=== PATIENT | female | born 2000 | race Caucasian/White ===

== ENCOUNTER 2018-05-29 21:20 | Emergency (ER) | payer BC ==
[2018-05-29 22:58] LABS: HCG Pregnancy < 0.60 mIU/mL
[2018-05-29 23:46] LABS: Urine Appearance Cloudy; Urine Bilirubin Negative (Negative); Urine Blood Negative (Negative); Urine Color Yellow; Urine Glucose Negative (Negative); Urine Ketones Negative (Negative); Urine Nitrite Negative (Negative); Urine Protein Negative (Negative); Urine Specific Gravity 1.012 (1.010-1.030); Urine Urobilinogen Negative (Negative)
[2018-05-30] MEDS ORDERED: HYDROcodone/ACETAMIN 5-325 MG* 1 TAB PO ONE ×2 (00:08→03:51)
[2018-05-30 00:34] LABS: ABS Basophils 0 10^3/ul (0-0.2); ABS Eosinophils 0.1 10^3/ul (0-0.6); ABS Lymphocytes 2.1 10^3/ul (1.0-4.8); ABS Monocytes 0.7 10^3/ul (0-0.8); ABS Neutrophils 4.5 10^3/ul (1.5-7.7); ABS Nucleated RBC 0 10^3/ul; Hematocrit 35 % (33-41); Hemoglobin 11.4 g/dL (12.0-16.0); Lymphocyte % 28.8 %; Mean Corpuscular HGB Conc 33 g/dL (31-36); Mean Corpuscular Hemoglobin 27 pg (27-31); Mean Corpuscular Volume 82 fL (80-97); Mean Platelet Volume 7.7 fL (7.4-10.4); Nucleated Red Blood Cells % 0.1; Platelet Count 377 10^3/uL (150-450); Red Blood Count 4.25 10^6 /uL (3.70-4.87); Red Cell Distribution Width 14 % (10.5-15); White Blood Count 7.5 10^3/uL (3.5-10.8)
[2018-05-30 00:45] LABS: ALT 14 U/L (7-52); AST 16 U/L (13-39); Albumin 4.2 g/dL (3.2-5.2); Albumin/Globulin Ratio 1.6 (1-3); Alkaline Phosphatase 50 U/L (34-104); Anion Gap 7 mmol/L (2-11); Blood Urea Nitrogen 13 mg/dL (6-24); C Reactive Protein < 1.00 mg/L (<8.01); CO2 Carbon Dioxide 25 mmol/L (22-32); Calcium 9.2 mg/dL (8.6-10.3); Chloride 108 mmol/L (101-111); EGFR Non-African American 76.9 (>60); Globulin 2.7 g/dL (2-4); Glucose 98 mg/dL (70-100); Sodium 140 mmol/L (135-145); Total Protein 6.9 g/dL (6.4-8.9)
--- NOTE | 2018-05-30 02:06 | ED ---
Abdominal Pain/Female - HPI Summary HPI Summary: Patient complains of left lower quadrant pain starting Sunday. Pain described as intermittent, more constant and progressive today. Patient states she took ibuprofen with no relief at 6 PM. Denies prior history of ovarian cysts. Denies fever, cough, sore throat, CP, SOB, N/V/D, change in urine, change in BM , vaginal symptoms. Medical history is ashen motives. Abdominal surgical history is none. LMP 05/05. - History of Current Complaint Chief Complaint: EDUrogenitalProblems Stated Complaint: STABBING PAIN IN MY UTERUS AREA PER PT Time Seen by Provider: 05/29/18 23:03 Hx Obtained From: Patient Onset/Duration: Gradual Onset, Lasting Days Timing: Intermittent Episode Lasting Severity Initially: Severe Severity Currently: Severe Pain Intensity: 9 Pain Scale Used: 0-10 Numeric Location: Discrete At: LLQ Radiates: No Character: Sharp, Burning, Cramping Aggravating Factor(s): Nothing Alleviating Factor(s): Nothing Associated Signs and Symptoms: Positive: Negative Allergies/Adverse Reactions: Allergies Allergy/AdvReac Type Severity Reaction Status Date / Time No Known Allergies Allergy Verified 05/29/18 21:30 PMH/Surg Hx/FS Hx/Imm Hx Endocrine/Hematology History: Denies: Hx Anticoagulant Therapy Cardiovascular History: Denies: Hx Pacemaker/ICD History: Denies: Hx Dialysis Sensory History: Denies: Hx Eye Prosthesis Opthamlomology History: Denies: Hx Legally Blind Neurological History: Denies: Hx CVA Psychiatric History: Denies: Hx Autism - Immunization History Immunizations Up to Date: Yes Infectious Disease History: No Infectious Disease History: Denies: Traveled Outside the [place] in Last 30 Days - Social History Alcohol Use: Occasionally Substance Use Type: Reports: None Smoking Status (MU): Never Smoked Tobacco Review of Systems Constitutional: Negative Eyes: Negative ENT: Negative Cardiovascular: Negative Respiratory: Negative Positive: Abdominal Pain Genitourinary: Negative Musculoskeletal: Negative Skin: Negative Neurological: Negative Psychological: Normal All Other Systems Reviewed And Are Negative: Yes Physical Exam - Summary Physical Exam Summary: Tenderness left lower quadrant. Abdominal exam otherwise unremarkable. Lung sounds clear to auscultation bilaterally. RRR. Triage Information Reviewed: Yes Vital Signs On Initial Exam: Initial Vitals Temp Pulse Resp BP Pulse Ox 98.8 F 90 16 121/74 98 05/29/18 21:30 05/29/18 21:30 05/29/18 21:30 05/29/18 21:30 05/29/18 21:30 Vital Signs Reviewed: Yes Appearance: Positive: Well-Appearing Skin: Positive: Warm Head/Face: Positive: Normal Head/Face Inspection Eyes: Positive: Normal Neck: Positive: Supple Respiratory/Lung Sounds: Positive: Clear to Auscultation Cardiovascular: Positive: Normal Abdomen Description: Positive: Nontender Musculoskeletal: Positive: Normal Neurological: Positive: Normal Psychiatric: Positive: Normal AVPU Assessment: Alert - [place] Coma Scale Best Eye Response: 4 - Spontaneous Best Motor Response: 6 - Obeys Commands Best Verbal Response: 5 - Oriented Coma Scale Total: 15 Diagnostics - Vital Signs Vital Signs Temp Pulse Resp BP Pulse Ox 05/29/18 21:30 98.8 F 90 16 121/74 98 - Laboratory Lab Results: Lab Results 05/29/18 05/29/18 05/29/18 Range/Units 22:23 22:23 23:27 WBC 7.5 (3.5-10.8) 10^3/uL RBC 4.25 (3.70-4.87) 10^6 /uL Hgb 11.4 L (12.0-16.0) g/dL Hct 35 (33-41) % MCV 82 (80-97) fL MCH 27 (27-31) pg MCHC 33 (31-36) g/dL RDW 14 (10.5-15) % Plt Count 377 (150-450) 10^3/uL MPV 7.7 (7.4-10.4) fL Neut % (Auto) 60.9 % Lymph % (Auto) 28.8 % Real % (Auto) 8.9 % Eos % (Auto) 1.0 % Baso % (Auto) 0.4 % Absolute Neuts (auto) 4.5 (1.5-7.7) 10^3/ul Absolute Lymphs (auto) 2.1 (1.0-4.8) 10^3/ul Absolute Monos (auto) 0.7 (0-0.8) 10^3/ul Absolute Eos (auto) 0.1 (0-0.6) 10^3/ul Absolute Basos (auto) 0 (0-0.2) 10^3/ul Absolute Nucleated RBC 0 10^3/ul Nucleated RBC % 0.1 Sodium 140 (135-145) mmol/L Potassium 4.0 (3.5-5.0) mmol/L Chloride 108 (101-111) mmol/L Carbon Dioxide 25 (22-32) mmol/L Anion Gap 7 (2-11) mmol/L BUN 13 (6-24) mg/dL Creatinine 0.93 (0.51-0.95) mg/dL Est GFR ( Amer) 93.0 (>60) Est GFR (Non-Af Amer) 76.9 (>60) BUN/Creatinine Ratio 14.0 (8-20) Glucose 98 (70-100) mg/dL Calcium 9.2 (8.6-10.3) mg/dL Total Bilirubin 0.20 (0.2-1.0) mg/dL AST 16 (13-39) U/L ALT 14 (7-52) U/L Alkaline Phosphatase 50 (34-104) U/L C-Reactive Protein < 1.00 (<8.01) mg/L Total Protein 6.9 (6.4-8.9) g/dL Albumin 4.2 (3.2-5.2) g/dL Globulin 2.7 (2-4) g/dL Albumin/Globulin Ratio 1.6 (1-3) Beta HCG, Quant < 0.60 mIU/mL Urine Color Yellow Urine Appearance Cloudy Urine pH 9.0 (5-9) Ur Specific [place] 1.012 (1.010-1.030) Urine Protein Negative (Negative) Urine Ketones Negative (Negative) Urine Blood Negative (Negative) Urine Nitrate Negative (Negative) Urine Bilirubin Negative (Negative) Urine Urobilinogen Negative (Negative) Ur Leukocyte Esterase Negative (Negative) Urine Glucose Negative (Negative) Result Diagrams: 05/29/18 22:23 05/29/18 22:23 Lab Statement: Any lab studies that have been ordered have been reviewed, and results considered in the medical decision making process. Abdominal Pain Fem Course/Dx - Course Course Of Treatment: Patient complains of left lower quadrant pain starting Sunday. Pain described as intermittent, more constant and progressive today. Patient states she took ibuprofen with no relief at 6 PM. Denies prior history of ovarian cysts. Denies fever, cough, sore throat, CP, SOB, N/V/D, change in urine, change in BM, vaginal symptoms. Medical history is ashen motives. Abdominal surgical history is none. LMP 05/05. Physical exam:Tenderness left lower quadrant. Abdominal exam otherwise unremarkable. Lung sounds clear to auscultation bilaterally. RRR. Vital signs within normal limits. Labs unremarkable. Transvaginal ultrasound positive for right hemorrhagic ovarian cyst. Patient advised to follow up with [facility]. Patient understands and approves Plan. - Diagnoses Provider Diagnoses: Hemorrhagic cyst of right ovary Discharge - Sign-Out/Discharge Documenting (check all that apply): Patient Departure Patient Received Moderate/Deep Sedation with Procedure: No - Discharge Plan Condition: Stable Disposition: HOME Prescriptions: HYDROcodone/ACETAMIN 5-325 MG* [[place] 5-325 TAB*] 1 tab PO Q8H PRN 2 Days #6 tab MDD 3 tabs PRN Reason: Pain Patient Education Materials: Ruptured Ovarian Cyst (ED) Referrals: No Primary Care Phys,NOPCP [Primary Care Provider] - Zraa Doyle MD [Medical Doctor] - Additional Instructions: Take ibuprofen for pain. Follow-up with [facility] Dr Doyle for further evaluation of ovarian cysts. Return to the ED for any new or worsening symptoms. - Billing Disposition and Condition Condition: STABLE Disposition: Home
[2018-05-30 04:22] VITALS: BP 128/80
[2018-05-30 12:45] LABS: Neisseria gonorrhoeae (GC) RNA Negative (Negative)
== END 2018-05-30 04:22 | disposition home or self-care (01) ==
LOC: ED 21:20
DX: N83.201 Unspecified ovarian cyst, right side (principal)
CPT/HCPCS: 36415; 76830; 80053; 81003; 84702; 85025; 86140; 87491; 87591; 99283

== ENCOUNTER 2018-06-02 20:35 | Emergency (ER) | payer BC ==
[2018-06-02] MEDS ORDERED: Ketorolac INJ* 30 MG/ML 1 ML VIAL IM ONE (22:13)
--- NOTE | 2018-06-02 22:27 | ED ---
GI/ HPI - HPI Summary HPI Summary: 18-year-old female presents with extreme left lower quadrant pain for the past couple days. States she was seen here four days ago and had an ultrasound that showed had a bleeding right ovarian cyst. She states her pain has persistent and has gotten worse on the left side. She denies any nausea vomiting. No diarrhea. No fevers. She had normal bowel movement today. Denies any constipation. Pain does not change when she bears down. She states that pain is in her left groin. No history of diverticulitis. no previous abdominal surgeries. States that she started bleeding today and is different from her normal period. she is not due for her period for a week and half. She states she normally has abnormal periods. She is not on control. Has no medical conditions. - History of Current Complaint Chief Complaint: EDOBProblems Time Seen by Provider: 06/02/18 22:04 Stated Complaint: LT SIDE PAIN PER PT Pain Intensity: 9 - Allergy/Home Medications Allergies/Adverse Reactions: Allergies Allergy/AdvReac Type Severity Reaction Status Date / Time soy Allergy GI Upset Verified 06/02/18 22:12 Home Medications: Home Medications Levothyroxine Sodium [Synthroid] 75 mcg PO DAILY 06/02/18 [History Confirmed ] PMH/Surg Hx/FS Hx/Imm Hx Endocrine/Hematology History: Denies: Hx Anticoagulant Therapy Cardiovascular History: Denies: Hx Pacemaker/ICD History: Denies: Hx Dialysis Sensory History: Denies: Hx Eye Prosthesis, Hx Legally Blind Opthamlomology History: Denies: Hx Eye Prosthesis, Hx Legally Blind Neurological History: Denies: Hx CVA Psychiatric History: Denies: Hx Autism Infectious Disease History: No Infectious Disease History: Denies: Traveled Outside the [place] in Last 30 Days - Family History Known Family History: Positive: Non-Contributory - Social History Alcohol Use: Weekly Substance Use Type: Reports: None Smoking Status (MU): Never Smoked Tobacco Review of Systems Negative: Fever Negative: Chest Pain Negative: Shortness Of Breath Positive: Abdominal Pain. Negative: Vomiting, Diarrhea, Nausea All Other Systems Reviewed And Are Negative: Yes Physical Exam Triage Information Reviewed: Yes Vital Signs On Initial Exam: Initial Vitals Temp Pulse Resp BP Pulse Ox 98.1 F 78 16 124/81 100 06/02/18 20:38 06/02/18 20:38 06/02/18 20:38 06/02/18 20:38 06/02/18 20:38 Vital Signs Reviewed: Yes Appearance: Positive: Well-Appearing Skin: Positive: Warm, Dry Head/Face: Positive: Normal Head/Face Inspection Eyes: Positive: Normal, Conjunctiva Clear ENT: Positive: Pharynx normal Respiratory/Lung Sounds: Positive: Clear to Auscultation, Breath Sounds Present Cardiovascular: Positive: Normal, RRR Abdomen Description: Positive: Soft, Other: - tenderness LLQ Bowel Sounds: Positive: Present Pelvic Exam: Positive: Speculum Exam Normal, Bimanual Exam Normal, No Cerv. Motion Tender, Blood, Tender Adnexa - left Musculoskeletal: Positive: Normal Neurological: Positive: Normal Psychiatric: Positive: Normal Diagnostics - Vital Signs Vital Signs Temp Pulse Resp BP Pulse Ox 06/02/18 20:38 98.1 F 78 16 124/81 100 - Laboratory Result Diagrams: 06/02/18 22:50 06/02/18 22:50 Lab Statement: Any lab studies that have been ordered have been reviewed, and results considered in the medical decision making process. - Ultrasound No standard instances Ultrasound Interpretation Completed By: Radiologist Summary of Ultrasound Findings: IMPRESSION: Left ovary grossly normal in appearance. No evidence of ovarian torsion. However, please note that partial or intermittent torsion may be. sonographically normal. Re-Evaluation - Re-Evaluation First Eval Re-Evaluation Time: 23:58 Comment: discussed results with patient GIGU Course/Dx - Course Course Of Treatment: 18-year-old female presents with extreme left lower quadrant pain for the past couple days. States she was seen here four days ago and had an ultrasound that showed had a bleeding right ovarian cyst. She states her pain has persistent and has gotten worse on the left side. She denies any nausea vomiting. No diarrhea. No fevers. She had normal bowel movement today. Denies any constipation. Pain does not change when she bears down. She states that pain is in her left groin. No history of diverticulitis. no previous abdominal surgeries. States that she started bleeding today and is different from her normal period. she is not due for her period for a week and half. She states she normally has abnormal periods. She is not on control. Has no medical conditions. On exam tenderness in left lower quadrant. No rebound. will get repeat ultrasound of just left ovary to make sure blood flow. wbc normal. crp normal. urine no infection. pelvic exam blood present, no CMT, tenderness left adnexal. ultrasound shows no cyst or torsion. discussed should follow up with pharmacist aide. patient understand and agrees with plan. - Diagnoses Differential Diagnoses - Female: Ovarian Cyst, Ovarian Torsion, Urinary Tract Infection Provider Diagnoses: Pelvic pain Discharge - Sign-Out/Discharge Documenting (check all that apply): Patient Departure Patient Received Moderate/Deep Sedation with Procedure: No - Discharge Plan Condition: Good Disposition: HOME Patient Education Materials: Pelvic Pain in Women (ED) Referrals: No Primary Care Phys,NOPCP [Primary Care Provider] - Additional Instructions: follow up with pharmacist aide Take ibuprofen every 6 hours for pain every 6 hours Return to ED if develop any new or worsening symptoms - Billing Disposition and Condition Condition: GOOD Disposition: Home
[2018-06-02 22:31] LABS: Urine Appearance Clear; Urine Bacteria Absent (Absent); Urine Bilirubin Negative (Negative); Urine Blood 1+ (Negative); Urine Color Straw; Urine Glucose Negative (Negative); Urine Ketones Negative (Negative); Urine Nitrite Negative (Negative); Urine Protein Negative (Negative); Urine Red Blood Cell Trace(0-2/hpf) (Absent); Urine Specific Gravity 1.011 (1.010-1.030); Urine Urobilinogen Negative (Negative); Urine White Blood Cell Absent (Absent)
[2018-06-02 22:58] LABS: ABS Basophils 0 10^3/ul (0-0.2); ABS Eosinophils 0.1 10^3/ul (0-0.6); ABS Lymphocytes 2.2 10^3/ul (1.0-4.8); ABS Monocytes 0.6 10^3/ul (0-0.8); ABS Neutrophils 4.1 10^3/ul (1.5-7.7); ABS Nucleated RBC 0 10^3/ul; Eosinophil % 1.1 %; Hematocrit 35 % (33-41); Hemoglobin 11.4 g/dL (12.0-16.0); Lymphocyte % 31.9 %; Mean Corpuscular HGB Conc 33 g/dL (31-36); Mean Corpuscular Hemoglobin 27 pg (27-31); Mean Corpuscular Volume 81 fL (80-97); Nucleated Red Blood Cells % 0.1; Platelet Count 355 10^3/uL (150-450); Red Blood Count 4.27 10^6 /uL (3.70-4.87); Red Cell Distribution Width 14 % (10.5-15)
[2018-06-02 23:16] LABS: ALT 10 U/L (7-52); AST 14 U/L (13-39); Albumin 4.2 g/dL (3.2-5.2); Albumin/Globulin Ratio 1.8 (1-3); Alkaline Phosphatase 47 U/L (34-104); Anion Gap 6 mmol/L (2-11); BUN/Creatinine Ratio 14.8 (8-20); Blood Urea Nitrogen 12 mg/dL (6-24); C Reactive Protein < 1.00 mg/L (<8.01); CO2 Carbon Dioxide 25 mmol/L (22-32); Calcium 9.2 mg/dL (8.6-10.3); Chloride 106 mmol/L (101-111); EGFR African American 109.1 (>60); EGFR Non-African American 90.1 (>60); Globulin 2.4 g/dL (2-4); Glucose 97 mg/dL (70-100); Potassium 3.8 mmol/L (3.5-5.0); Sodium 137 mmol/L (135-145); Total Protein 6.6 g/dL (6.4-8.9)
[2018-06-02 23:22] LABS: HCG Pregnancy < 0.60 mIU/mL
[2018-06-03 00:41] VITALS: BP 113/77
[2018-06-03 14:10] LABS: Neisseria gonorrhoeae (GC) RNA Negative (Negative)
[2018-06-03 14:16] LABS: Trichomonas vaginalis Result Negative (Negative)
== END 2018-06-03 00:40 | disposition home or self-care (01) ==
LOC: ED 20:35
DX: R10.32 Left lower quadrant pain (principal); R10.2 Pelvic and perineal pain
CPT/HCPCS: 36415; 76857; 80053; 81003; 81015; 83690; 84702; 85025; 86140; 87480; 87491; 87510; 87591; 87661; 96372; 99283; J1885

== ENCOUNTER 2019-04-07 18:28 | Emergency (ER) | payer BC ==
[2019-04-07 19:01] LABS: ABS Eosinophils 0.2 10^3/ul (0-0.6); ABS Lymphocytes 1.1 10^3/ul (1.0-4.8); ABS Monocytes 0.6 10^3/ul (0-0.8); ABS Neutrophils 6.4 10^3/ul (1.5-7.7); Eosinophil % 1.9 %; Hematocrit 34 % (35-47); Hemoglobin 11.6 g/dL (12.0-16.0); Lymphocyte % 12.8 %; Mean Corpuscular HGB Conc 34 g/dL (31-36); Mean Corpuscular Hemoglobin 27 pg (27-31); Mean Corpuscular Volume 78 fL (80-97); Mean Platelet Volume 7.2 fL (7.4-10.4); Platelet Count 323 10^3/uL (150-450); Red Blood Count 4.36 10^6 /uL (3.70-4.87); Red Cell Distribution Width 16 % (10-15); White Blood Count 8.3 10^3/uL (3.5-10.8)
[2019-04-07 19:11] LABS: INR 0.96 (0.82-1.09)
--- NOTE | 2019-04-07 19:15 | ED ---
HPI Chest Pain - HPI Summary HPI Summary: 19 year old F presenting to [facility] with a chief complaint of chest pain radiating to her back since yesterday, worse since today. The patient rates the pain 8/10 in severity. Symptoms aggravated by coughing and deep breathing. Symptoms alleviated by nothing. Patient reports congestion since 8 days ago, a sore throat, postnasal drip, and shortness of breath. Patient denies any fever, nausea, vomiting, diarrhea, or leg swelling. She states that her last menstrual period ended on March 22. She denies being on control, recent travel or hospitalizations in the last 3 months, or an active history of smoking. She had an ovarian cyst removed in December. Medications reviewed. Allergies noted. - History of Current Complaint Chief Complaint: EDChestPainROMI Time Seen by Provider: 04/07/19 19:08 Hx Obtained From: Patient Onset/Duration: Started Days Ago Timing: Constant Current Severity: Moderate - 8/10 Pain Intensity: 8 Pain Scale Used: 0-10 Numeric Chest Pain Radiates: Yes Chest Pain Radiates To:: Back Aggravating Factor(s): Deep Breaths, Other: - Cough Alleviating Factor(s): Nothing Associated Signs and Symptoms: Positive: Negative - Diarrhea; vomiting, Shortness of Breath, Back Pain, Nasal Congestion, Other: - Sore throat; postnasal drip. Negative: Fever, Nausea, Calf Pain/Swelling - Allergy/Home Medications Allergies/Adverse Reactions: Allergies Allergy/AdvReac Type Severity Reaction Status Date / Time soy Allergy GI Upset Verified 04/07/19 18:33 Home Medications: Home Medications Levothyroxine Sodium [Synthroid] 35 mcg PO DAILY 06/02/18 [History Confirmed 03/27] Escitalopram * [Lexapro 5 mg (NF)] 5 mg PO DAILY 04/07/19 [History Confirmed 03/27] PMH/Surg Hx/FS Hx/Imm Hx Endocrine/Hematology History: Denies: Hx Anticoagulant Therapy Cardiovascular History: Denies: Hx Pacemaker/ICD History: Denies: Hx Dialysis Sensory History: Denies: Hx Eye Prosthesis, Hx Legally Blind Opthamlomology History: Denies: Hx Eye Prosthesis, Hx Legally Blind Neurological History: Denies: Hx CVA Psychiatric History: Denies: Hx Autism - Surgical History Surgical History: Yes Surgery Procedure, Year, and Place: Ovarian cyst removal Infectious Disease History: No Infectious Disease History: Denies: Traveled Outside the [place] in Last 30 Days - Family History Known Family History: Negative: Cardiac Disease - Social History Alcohol Use: Weekly Hx Substance Use: No Substance Use Type: Reports: None Hx Tobacco Use: No Smoking Status (MU): Never Smoked Tobacco Review of Systems Negative: Fever Positive: Sore Throat, Nasal Discharge, Other - Congestion Positive: Chest Pain Positive: Shortness Of Breath Negative: Vomiting, Diarrhea, Nausea Musculoskeletal: Negative - Leg swelling Positive: Other - Back pain All Other Systems Reviewed And Are Negative: Yes Physical Exam - Summary Physical Exam Summary: Constitutional: Well-developed, Well-nourished, Alert. (-) Distressed; scratchy voice Skin: Warm, Dry HENT: Normocephalic; Atraumatic; congestion Eyes: Conjunctiva normal Neck: Musculoskeletal ROM normal neck. (-) JVD, (-) Stridor, (-) Tracheal deviation Cardio: Rhythm regular, rate normal, Heart sounds normal; Intact distal pulses; The pedal pulses are 2+ and symmetric. Radial pulses are 2+ and symmetric. (-) Murmur Pulmonary/Chest wall: Effort normal. (-) Respiratory distress, (-) Wheezes, (-) Rales; tenderness to palpation of her anterior chest wall between the 4th and 5th ribs on the left. Abd: Soft, (-) tenderness, (-) Distension, (-) Guarding, (-) Rebound Musculoskeletal: (-) Edema Lymph: (-) Cervical adenopathy Neuro: Alert, Oriented x3 Psych: Mood and affect Normal Triage Information Reviewed: Yes Vital Signs On Initial Exam: Initial Vitals Temp Pulse Resp BP Pulse Ox 97.9 F 82 16 135/66 100 04/07/19 18:32 04/07/19 18:32 04/07/19 18:32 04/07/19 18:32 04/07/19 18:32 Vital Signs Reviewed: Yes Procedures - Sedation Patient Received Moderate/Deep Sedation with Procedure: No Diagnostics - Vital Signs Vital Signs Temp Pulse Resp BP Pulse Ox 04/07/19 18:32 97.9 F 82 16 135/66 100 - Laboratory Lab Results: Lab Results 04/07/19 04/07/19 Range/Units 18:37 18:40 WBC 8.3 (3.5-10.8) 10^3/uL RBC 4.36 (3.70-4.87) 10^6 /uL Hgb 11.6 L (12.0-16.0) g/dL Hct 34 L (35-47) % MCV 78 L (80-97) fL MCH 27 (27-31) pg MCHC 34 (31-36) g/dL RDW 16 H (10-15) % Plt Count 323 (150-450) 10^3/uL MPV 7.2 L (7.4-10.4) fL Neut % (Auto) 77.3 % Lymph % (Auto) 12.8 % [place] % (Auto) 7.7 % Eos % (Auto) 1.9 % Baso % (Auto) 0.3 % Absolute Neuts (auto) 6.4 (1.5-7.7) 10^3/ul Absolute Lymphs (auto) 1.1 (1.0-4.8) 10^3/ul Absolute Monos (auto) 0.6 (0-0.8) 10^3/ul Absolute Eos (auto) 0.2 (0-0.6) 10^3/ul Absolute Basos (auto) 0.0 (0-0.2) 10^3/ul Absolute Nucleated RBC 0.0 10^3/ul Nucleated RBC % 0.0 INR (Anticoag Therapy) 0.96 (0.82-1.09) Result Diagrams: 04/07/19 18:40 03 18:40 Lab Statement: Any lab studies that have been ordered have been reviewed, and results considered in the medical decision making process. - Radiology Chest x-ray Radiology Interpretation Completed By: ED Physician Summary of Radiographic Findings: No acute disease. ED physician has reviewed and interpreted this report. - EKG 18:32 Cardiac Rate: NL - 91 BPM EKG Rhythm: Sinus Rhythm Summary of EKG Findings: Normal sinus rhythm at 91 bpm, normal UT, normal QRS, normal QTc, normal axis, normal ST, normal T-waves, normal EKG. ED physician has reviewed and interpreted this EKG. Re-Evaluation - Re-Evaluation First Eval Re-Evaluation Time: 21:40 Comment: We discussed results and plan for discharge Chest Pain Course/Dx - Course Course Of Treatment: 19 year old F presenting to [facility] with a chief complaint of chest pain radiating to her back since yesterday, worse since today. Symptoms aggravated by coughing and deep breathing. Patient reports congestion since 8 days ago, a sore throat, postnasal drip, and shortness of breath. Physical exam findings show scratchy voice, congestion, and tenderness to palpation of her anterior chest wall between the 4th and 5th ribs on the left. An EKG reveals normal sinus rhythm at 91 bpm, normal UT, normal QRS, normal QTc , normal axis, normal ST, normal T-waves, normal EKG. CXR reveals, per ED physician, no acute disease. Test results with no significant abnormalities except for an Hgb of 11.6, Hct of 34, MCV of 78, RDW of 16, MPV of 7.2, and BUN/ creatinine ratio of 22.5. Patient will be discharged with follow up from her PCP. The patient is agreeable with this plan. - Diagnoses Provider Diagnoses: Chest wall pain Discharge ED - Sign-Out/Discharge Documenting (check all that apply): Patient Departure - Discharge - Discharge Plan Condition: Stable Disposition: HOME Patient Education Materials: Chest Pain (ED), Costochondritis (ED) Print Language: MALIAN Referrals: [facility] [Outside] - Billing Disposition and Condition Condition: STABLE Disposition: Home - Attestation Statements Document Initiated by Arslan: Yes Documenting Scribe: Merna Weeks Provider For Whom Arslan is Documenting (Include Credential): Erica Stearns MD Scribe Attestation: Rachel Tuttle Natalie George, scribed for Erica Estrella MD on 04/08/19 at 0533. Scribe Documentation Reviewed: Yes Provider Attestation: The documentation as recorded by the Rachel darden Natalie George accurately reflects the service I personally performed and the decisions made by , Erica Estrella MD Status of Scribe Document: Viewed
[2019-04-07 19:31] LABS: ALT 9 U/L (7-52); AST 13 U/L (13-39); Albumin 4.5 g/dL (3.2-5.2); Albumin/Globulin Ratio 1.7 (1-3); Alkaline Phosphatase 58 U/L (34-104); Anion Gap 8 mmol/L (2-11); BUN/Creatinine Ratio 22.5 (8-20); Blood Urea Nitrogen 18 mg/dL (6-24); CO2 Carbon Dioxide 24 mmol/L (22-32); Calcium 9.3 mg/dL (8.6-10.3); Chloride 106 mmol/L (101-111); EGFR African American 109.6 (>60); EGFR Non-African American 90.5 (>60); Globulin 2.6 g/dL (2-4); Glucose 88 mg/dL (70-100); Potassium 3.8 mmol/L (3.5-5.0); Sodium 138 mmol/L (135-145); Total Protein 7.1 g/dL (6.4-8.9)
[2019-04-07 21:18] LABS: HCG Pregnancy < 0.60 mIU/mL
[2019-04-07 21:56] VITALS: BP 111/73
== END 2019-04-07 21:59 | disposition home or self-care (01) ==
LOC: ED 18:28
DX: R07.89 Other chest pain (principal); R05 Cough; J02.9 Acute pharyngitis, unspecified; R09.81 Nasal congestion; R06.02 Shortness of breath
CPT/HCPCS: 36415; 71046; 80053; 84484; 84702; 85025; 85610; 93005; 99283